=== PATIENT | male | born 2005 | race Caucasian/White ===

== ENCOUNTER 2024-09-21 17:46 | Outpatient (CLI) | payer MEDICAID, SELFPAY ==
--- NOTE | 2024-09-21 15:10 | DI.RAD_ITS ---
Exam(s) XR CLAVICLE LT EXAM: XR CLAVICLE LT CLINICAL HISTORY: M25.512 Pain in left shoulder. TECHNIQUE: 2D digital imaging was performed. COMPARISON: No exams were available for comparison FINDINGS: Two views No evidence of left clavicle fracture. AC joint appears unremarkable. Bone density normal. No osse ous lesions. No adjacent rib fractures. IMPRESSION: No clavicle fracture. DATA REPOSITORY: RADIATION DOSE DELIVERED:
--- NOTE | 2024-09-21 15:11 | DI.RAD_ITS ---
Exam(s) XR SHOULDER LT COMPLETE 2+V EXAM: XR SHOULDER LT COMPLETE 2+V CLINICAL HISTORY: M25.512 Pain in left shoulder. TECHNIQUE: 2D digital imaging was performed. COMPARISON: No exams were available for comparison FINDINGS: Five views: No evidence fracture or dislocation nor abnormal soft tissue calcifications. Subacromial space appea rs unremarkable. AC joint unremarkable. Glenohumeral joint unremarkable. Clavicle unremarkable. C oracoid process unremarkable. Bone density normal. No osseous lesions. No adjacent rib fractures. IMPRESSION: Significant osseous findings in the left shoulder. DATA REPOSITORY: RADIATION DOSE DELIVERED:
== END 2024-09-21 18:06 ==
PROVIDERS: PCP Nurse Practitioner Family; Visit Provider Nurse Practitioner Family
DX: M25.512 Pain in left shoulder (principal)
CPT/HCPCS: 73000; 73030

== ENCOUNTER 2025-05-07 21:35 | Emergency (ER) | payer MEDICAID, SELFPAY ==
--- NOTE | 2025-05-07 21:30 | RT.EKG_ITS ---
APPROVED REPORT Exam: Resting ECG Reason for Exam: syncope Patient Location: E HR:76 bpm ECG Measurements Heart Rate 76 AXIS CO 143 P 84 QRSd 96 QRS 96 QT 364 T 65 QTc 409 Conclusion Sinus arrhythmia...V-rate 54- 89, variation>10% ST elevation suggests acute pericarditis...ST >0.10mV, ant/lat/inf
[2025-05-07 21:39] VITALS: BP 133/76; PULSE 65; RESP 20; TEMP 36.7; O2SAT 100
[2025-05-07 21:43] VITALS: RESP 15
--- NOTE | 2025-05-07 21:51 | W.ED.GENAD ---
Discharge Plan Disposition Patient Disposition: Home Condition: Stable Discharge Details Clinical Impression: Syncope Primary Care Provider: Harriet Hunter ED Provider: Adrián Mares Home Meds and New Rx's Prescriptions: No Action No Known Home Meds Discharge Instructions Additional Instructions: Make sure you are drinking plenty of fluids to stay hydrated. Follow-up with your primary care provider this week especially if you are having any lingering symptoms. If you feel more ill or have new symptoms such as persistent vomiting or severe chest pain return to the emergency department for reevaluation. HPI General Mode of arrival: ambulatory. Date/Time Provider Initiated Documentation: 05/07/25 21:36. Limitations to Documentation: no limitations. Information obtained by: patient. History of Present Illness 19 year old M presents to the emergency department with the chief complaint of syncope, described as moderate, Patient reports no radiation. Patient started experiencing this hour(s) (3) and it has been now resolved. No relieving factors improve symptom(s), No exacerbating factors reported . Patient notes denies chest pain and shortness of breath. Patient did receive the following treatments prior to arrival, none Related Data Home Medications ?Medication ?Instructions ?Recorded ?Confirmed Unknown [No Known Home Meds] 05/07/25 05/07/25 Allergies Allergy/AdvReac Type Severity Reaction Status Date / Time No Known Allergies Allergy Unverified 05/07/25 22:14 General Stated Complaint: Dizzy/Sync DELMY: 3 Review of Systems All systems reviewed & are unremarkable except as noted in HPI and below Constitutional Constitutional: Denies chills, Denies fever(s) and Denies weakness ENT Ears, Nose, Mouth, and Throat: Reports epistaxis Cardiovascular Cardiovascular: Denies chest pain, Reports syncope and Denies dyspnea Respiratory Respiratory: Denies cough and Denies dyspnea Gastrointestinal Gastrointestinal: Denies abdominal pain, Denies nausea and Denies vomiting Musculoskeletal Musculoskeletal: Denies joint swelling Neurologic Neurologic: Reports syncope and Denies weakness Exam Const General: no acute distress Orientation: alert HENMT Head: normal to inspection Ears: external ears normal General nose exam: external nose normal Mouth: moist mucous membranes Eyes General: appearance normal, both eyes and all related structures Neck Neck: normal visual inspection Resp Effort & Inspection: normal respiratory effort and able to speak in complete sentences Cardio Jugular venous pressure: no JVD Rate: regular rate Heart Sounds: no murmurs GI Palpation: soft and nontender Skin General skin exam: no rashes or lesions noted Neuro General: patient alert and patient oriented x3 Extrem General: normal to inspection Psych Mental Status: mental status grossly normal Course Vital Signs Vital signs: Vital Signs Temperature 36.7 C 05/07/25 21:39 Pulse 65 05/07/25 21:39 Respiratory Rate 20 05/07/25 21:39 Blood Pressure 133/76 05/07/25 21:39 Pulse Oximetry 100 05/07/25 21:39 Temperature 36.7 C 05/07/25 21:39 Pulse 65 05/07/25 21:39 Respiratory Rate 15 05/07/25 21:43 Respiratory Effort Normal 05/07/25 21:43 Respiratory Depth Normal 05/07/25 21:43 Respiratory Pattern Normal 05/07/25 21:43 Blood Pressure 133/76 05/07/25 21:39 Blood Pressure Position Sitting 05/07/25 21:39 Pulse Oximetry 100 05/07/25 21:39 Oxygen Delivery Method Room Air 05/07/25 21:39 Oxygen Flow Rate 0 05/07/25 21:39 Medical Decision Making 19-year-old male with no significant past medical history comes in after he had an episode of syncope several hours ago. He states he did use cocaine earlier today which he uses once in a while but has never passed out from it. He says he was blowing his nose and noticed it was blood on it and then started getting lightheaded and lost consciousness and fell. He says he had a very mild headache since, no vomiting, no vision changes, no chest pain, no difficulty breathing, no abdominal pain. He is alert and oriented x 4. He has no signs of trauma to the head, pupils are equal reactive to light. He has clear lung sounds moving all extremities without difficulty. He has normal gait. No epistaxis currently. I suspect he had vasovagal syncope, will check a CBC BMP and troponin. His headache is very mild and he did not have any vomiting and he has no signs of trauma to the head so I do not feel imaging of his head is indicated. Patient's labs show no emergent findings and patient is currently asymptomatic and feels well. I suspect vasovagal syncope. He is stable for discharge and he will follow-up with either express care or his PCP if he has any recurrent symptoms and return precautions given. Differential Diagnosis Differential Diagnosis: vasovagal, orthostasis Lab Data Lab results reviewed: Yes I reviewed the patient's lab results. ECG Data Attestation: I personally reviewed and interpreted this ECG (s) as follows: Prior ECG tracings: not available for review Interpretation: sinus rate of 76 early repol no stemi PFSH All Active Problems (Updated 05/07/25 @ 22:00 by Adrián Mares MD) Syncope (Chronic) Social History Smoking risk assessment performed?: No Drug use: Daily Substance use type: marijuana and crack/cocaine PAWSS Have you Been Recently Intoxicated or Drunk Within the Last 30 days?: No Have you Ever Experienced Previous Episodes of Alcohol Withdrawal?: No Have you ever Experienced Withdrawal Seizures?: No Have you ever Experienced Delirium Tremens(DT)s?: No Have you ever undergone Alcohol Rehabilitation Treatment (i.e, inpt ot outpatient treatment programs)?: No Have you ever Experienced Blackouts?: No Have you ever Combined Alcohol with other Downers within the last 90 days?: No Have you ever Combined Alcohol with any other Substance of Abuse during the last 90 days?: No Positive Blood Alcohol level on Presentation? [PCS.BAL]: No Evidence of Increased Autonomic Activity (i.e. HR>120, tremor, sweating, agitation, nausea)?: No Result: 0
[2025-05-07 22:04] LABS: HCT 38.7 % (40.0-50.0); HGB 13.2 g/dL (13.5-17.5); MCH 30.2 pg (27.0-33.0); MCHC 34.1 % (32.0-36.0); MCV 89 fL (80-95); MPV 9.5 fL (8.0-11.0); Platelet Count 233 10^3/uL (130-400); RBC 4.37 10^6/uL (4.36-5.78); RDW 11.9 % (11.8-14.1); RDW-SD 38.6 fL; WBC 8.03 10^3/uL (4.4-10.8)
[2025-05-07 22:28] LABS: Anion Gap 7.8 mmol/L (3-11); BUN 16 mg/dL (7-18); CO2 32.2 mmol/L (21.0-32.0); Calcium 8.7 mg/dL (8.5-10.1); Chloride 103 mmol/L (98-107); Estimated GFR 88.79 (mL/min/1.73m2); Glucose 108 mg/dL (74-106); Potassium 3.8 mmol/L (3.5-5.1); Sodium 143 mmol/L (136-145); Troponin I 15 ng/L (<or=76)
--- NOTE | 2025-05-15 09:14 | NUR.NOTE ---
Access chart to reconcile E[facility]. Duplicate order cancelled. Nursing Note:
== END 2025-05-07 22:50 | disposition home or self-care (01) ==
LOC: ER 22:54
PROVIDERS: Emergency Provider Emergency Medicine; PCP Nurse Practitioner Family
DX: R55 Syncope and collapse (principal)
CPT/HCPCS: 99283; 99284; 80048; 85027; 93005; 84484; 93010